=== PATIENT | female | born 2000 | race Caucasian/White ===

== ENCOUNTER 2022-01-06 10:20 | Outpatient (REF) | payer MEDICAID, SELFPAY ==
--- NOTE | 2022-01-06 08:25 | PAPFT_PTH ---
PATIENT: Val Huynh LOC: [facility] U#:[id number] AGE/SX: 21/F ROOM: RE01/06/[address]: Ana Maria Mcpherson NP : [id number] BED: DIS: 01/06/2022 SPEC #: [id number] RECD: 01/06/22 12:40 STATUS: IFRAH REAdan #: [id number] CANDI: 01/06/22 08:[address]: Ana Maria Mcpherson NP DEPT: [facility] Cytology RECD BY: Ailyn Matias ENTERED: 01/06/22 12:40 SP TYPE: PAPFT OTHR DR: MARIE CHAVEZ Tissues: 1 - CX/ENDOCX FOR PAP SMEARS Procedures: PAP THIN PREP/[facility] Screening Comments: [id number]
== END 2022-01-06 10:21 | disposition home or self-care (01) ==
LOC: LBN 10:20
PROVIDERS: PCP Nurse Practitioner Primary Care; Visit Provider Nurse Practitioner Women's Health
DX: Z12.4 Encounter for screening for malignant neoplasm of cervix (principal)
CPT/HCPCS: 88142